=== PATIENT | female | born 1960 | race Caucasian/White ===

== ENCOUNTER → 2016-10-31 | Outpatient (CLI) | payer OTHER ==
--- NOTE | 2016-10-31 11:14 | REPMRS ---
Patient History The patient states she has not had a clinical breast exam in over a year. Patient is nulliparous. No known family history of cancer. Digital Mammo Screening Bilat: October 31, 2016 - Exam #: [id number] Bilateral CC and MLO view(s) were taken. Technologist: Emi Serna, Technologist Prior study comparison: October 07, 2015, bilateral digital mammo screening bilat performed at [facility]. September 14, 2014, bilateral digital mammo screening bilat performed at [facility]. FINDINGS: There are scattered fibroglandular densities. There has been no change in the appearance of the mammogram from the prior studies. There is a mild amount of residual fibroglandular tissue which is fairly symmetric. There is no interval development of dominant mass, architectural distortion, or clustered microcalcification suggestive of malignancy. ASSESSMENT: BI-RADS/ACR category 1 mammogram. Negative. Recommendation Routine screening mammogram in 1 year (for women over age 40). This mammogram was interpreted with the aid of an FDA-approved computer-aided dectection system. Electronically Signed By: Koby Ying MD 10/31/16 5831
== END ==
LOC: M RAD 08:44
PROVIDERS: ATTEND Family Medicine
DX: Z12.31 Encounter for screening mammogram for malignant neoplasm of breast (principal)

== ENCOUNTER → 2017-11-05 | Outpatient (CLI) | payer OTHER | LOC: M RAD 08:33 | DX: Z12.31 Encounter for screening mammogram for malignant neoplasm of breast (principal) | CPT/HCPCS: 77067 ==

== ENCOUNTER → 2018-08-12 | Outpatient (CLI) | payer OTHER ==
--- NOTE | 2018-08-12 12:10 | REP ---
COMPLETE SKULL: HISTORY: Soft tissue neoplasm. There is no acute fracture or bone lesion. The sinuses are clear. IMPRESSION: Normal study. Electronically Signed by Ryan Alvarado MD 08/12/2018 12:22 P
== END ==
LOC: M RAD 10:46
PROVIDERS: ATTEND Plastic Surgery Surgery of the Hand
DX: D49.2 Neoplasm of unspecified behavior of bone, soft tissue, and skin (principal)

== ENCOUNTER 2018-09-03 06:05 | Day surgery (SDC) | payer OTHER ==
[~2018-09-03] VITALS: Ht 152.4 cm; Wt 105.0 kg
[~2018-09-03 06:05] MED LIST: AVAP300T23 PO; CARV6.25 PO; FISH7.5C PO; GLIM4TAB PO; HYDR25TAB PO; JANU100T PO; KLOR1CAP PO; LOVA20TA2 PO; OMEP20CA3 PO; PRESCAP PO
[2018-09-03] MEDS ORDERED: LIDOCAINE 2% W/EPIN INJ 20ML **PRES FREE As Ordered ONE (07:11)
[2018-09-03] MEDS ORDERED: LIDOCAINE W/EPINEPHRINE 1% 20ML VIAL As Ordered ONE (07:11)
[2018-09-03] MEDS ORDERED: ceFAZolin 2 GM/D5W 50 ML IV BAG (J0690 PER 500MG) As Ordered ONE (07:17)
[2018-09-03] MEDS ORDERED: PROPOFOL 200 MG/20 ML VIAL As Ordered ONE ×2 (07:21→08:52)
[2018-09-03] MEDS ORDERED: LIDOCAINE 2% INJ 100 MG/5 ML SDV (FOR ANES.) As Ordered ONE (07:21)
[2018-09-03] MEDS ORDERED: MIDAZOLAM INJ 2 MG/2 ML VIAL (J2250) As Ordered ONE (07:22)
[2018-09-03] MEDS ORDERED: fentaNYL 100 MCG/2 ML INJECTION (J3010) As Ordered ONE (07:22)
[2018-09-03] MEDS ORDERED: LR 1,000 ML IV ONE (07:30)
[2018-09-03] MEDS ORDERED: ceFAZolin SOD 1 GM in D5W MINI-BAG PLUS 50 ML IV ONE (07:30)
[2018-09-03] MEDS ORDERED: ceFAZolin 1GM INJ (J0690 PER 500MG) As Ordered ONE (08:00)
[2018-09-03] MEDS ORDERED: ONDANSETRON 4MG/2ML VIAL (J2405) As Ordered ONE (08:06)
[2018-09-03] MEDS ORDERED: PHENYLephrine HCL 500 MCG/5 ML (100MCG/ML) SYRINGE (J2370) As Ordered ONE (08:06)
[2018-09-03] MEDS ORDERED: KETOROLAC 60 MG/2 ML VIAL (J1885) As Ordered ONE (08:06)
[2018-09-03] MEDS ORDERED: ePHEDrine SULFATE 25 MG/5 ML(5MG/ML) SYRINGE As Ordered ONE (08:19)
[2018-09-03] MEDS ORDERED: BACITRACIN OINT 30GM As Ordered ONE (08:59)
--- NOTE | 2018-09-03 09:06 | POST-OPPD ---
Postoperative Procedure Note Date Of Procedure: Sep 03, 2018 PREOPERATIVE DIAGNOSIS: Multiple masses scalp POSTOPERATIVE DIAGNOSIS: same FINDINGS: four masses anterior and posterior right scalp. Anterior mass has cluster cysts. PROCEDURE: Excision multiple masses anterior and right posterior scalp SURGEON: Dr Jones ANESTHESIA: Local with sedation SPECIMENS: #1 scalp masses anterior with excess skin, #2 mass, #3 mass, #4 mass and skin ESTIMATED BLOOD LOSS: 5 cc REPLACED: none DRAINS: none COMPLICATIONS: none POSTOPERATIVE CONDITION: stable LESLIE JONES DO Sep 03, 2018 09:06
[2018-09-03] MEDS ORDERED: OXYC1TAB23 PO (09:08)
[2018-09-03 10:10] VITALS: BP 154/75
--- NOTE | 2018-09-03 20:21 | RO ---
DATE OF PROCEDURE: 09/03/2018 PREPROCEDURE DIAGNOSIS: Multiple masses on the scalp. POSTPROCEDURE DIAGNOSIS: Multiple masses on the scalp. PROCEDURE: Excision multiple masses anterior and right posterior scalp. SURGEON: Soo Piper DO LEGAL RECRUITER: ANESTHESIA: Local with sedation. Specimens were sent. There were four specimens - #1, #2, #3, and #4 and they are all masses from different locations with excess skin. ESTIMATED BLOOD LOSS: About 5 mL. No replacement needed. No drains. No complications. DESCRIPTION OF PROCEDURE: This is a 58-year-old female who developed multiple cysts on her scalp, so we identified four of them. The anterior cyst is a complex cyst, they are joined ones together, so she is scheduled for full excision. All of the risks and benefits and alternatives discussed with the patient in the preoperative holding area. She is ready to proceed. She was brought into the operating room, placed in supine position. She positioned herself in the supine position, tilted to the left exposing the right scalp and the superior scalp. Preoperative antibiotics were given, 2 grams of Ancef and sequential stockings placed on the lower calf. Light sedation was given to the patient, and then 2% lidocaine with epinephrine was infiltrated through all the areas of work. After the effect of lidocaine was ensured, the longitudinal incision was carried out through our first anterior mass, which, like I said, was a complex cyst. I made a longitudinal incision and blunt dissection was done until the fully encapsulated two cysts were identified and carefully removed. No bleeding was at the bed. The wound was irrigated with bacitracin irrigation. The edges of the skin were reapproximated, excess of the skin was excised and the skin was closed in layers with subcu #3-0 Monocryl sutures and a #4-0 Monocryl vertical mattress suture. Then, we turned our attention to lesion #2. The first one was 4 cm in length, the second one was smaller; it was about 1 cm. Incision was carried out as well and the cyst was easily shelled out using blunt dissection with a Joker elevator. The wound was irrigated with bacitracin irrigation and then closed in layers with #3-0 Monocryl sutures. Total incision on this is 1-1/2 cm. The #3 lesion is in the same position of the upper right side of the scalp, and, again, incision is carried out, the blunt dissection is done and the cyst was removed without any difficulties. The wound is irrigated and closed with interrupted #3-0 Monocryl sutures and then vertical mattress #4-0 Monocryl suture as well. The length of that incision is 1.5 cm. Then, we turned our attention to the last mass, which is on the right posterior portion of the scalp, oriented behind the right ear, and it is a longer, bigger mass. A longitudinal incision was carried out through the most prominent part of it. The cyst was identified and blunt dissection was done with Joker elevator to remove the cyst from its subcuticular place of origin and removed. The wound was irrigated with bacitracin irrigation. Excess skin was trimmed and also sent to pathology, and then the wound was closed in layers with interrupted #3-0 Monocryl sutures and a #4-0 mattress suture for the dermis. Total length of this incision is 4 cm. Then, bacitracin ointment and a bulky dressing was placed, and the patient was transferred to the recovery room completely awake.
== END 2018-09-03 10:11 | disposition home or self-care (01) ==
LOC: M SDC 06:05 → MERGE 07:30 → M SDC 10:11
PROVIDERS: ATTEND Plastic Surgery Surgery of the Hand
DX: L72.11 Pilar cyst (principal); L72.12 Trichodermal cyst; E11.9 Type 2 diabetes mellitus without complications; K21.9 Gastro-esophageal reflux disease without esophagitis; I10 Essential (primary) hypertension; E78.5 Hyperlipidemia, unspecified; Z79.84 Long term (current) use of oral hypoglycemic drugs; Z79.899 Other long term (current) drug therapy
CPT/HCPCS: 11422; 11424; 88304; J0690; J1885; J2250; J2370; J2405; J3010

== ENCOUNTER → 2018-11-13 | Outpatient (CLI) | payer OTHER ==
[~2018-11-13] MED LIST changes: +OXYC1TAB23 PO
--- NOTE | 2018-11-13 08:48 | REPMRS ---
Patient History The patient states she has not had a clinical breast exam in over a year. No known family history of cancer. Digital Mammo Screening Bilat: November 13, 2018 - Exam #: [id number] Bilateral CC and MLO view(s) were taken. Technologist: Belkis Guerrero, Technologist Prior study comparison: November 05, 2017, bilateral digital mammo screening bilat performed at [facility]. October 31, 2016, bilateral digital mammo screening bilat performed at [facility]. October 07, 2015, bilateral digital mammo screening bilat performed at [facility]. FINDINGS: There are scattered fibroglandular densities. There has been no change in the appearance of the mammogram from the prior studies. There is a mild amount of scattered fibroglandular density which is fairly symmetric. There is no interval development of dominant mass, architectural distortion, or clustered microcalcification suggestive of malignancy. 3-D tomosynthesis shows no additional findings. Assessment: BI-RADS/ACR category 1 mammogram. Negative Mammogram. Recommendation Routine screening mammogram of both breasts in 1 year (for women over age 40). This patient's Lifetime Breast Cancer RIsk is estimated at 10.1 %. This mammogram was interpreted with the aid of an FDA-approved computer-aided dectection system. Electronically Signed By: Israel Beard MD 11/13/18 0885
== END ==
LOC: M RAD 07:48
PROVIDERS: ATTEND Family Medicine
DX: Z12.31 Encounter for screening mammogram for malignant neoplasm of breast (principal)

== ENCOUNTER → 2019-12-30 | Outpatient (CLI) | payer OTHER ==
[~2019-12-30] MED LIST changes: -GLIM4TAB PO; +GLIM4TAB5 PO; +OMEP1CAP73 PO; -OMEP20CA3 PO
--- NOTE | 2020-01-15 14:56 | REPMRS ---
Patient History The patient states she has not had a clinical breast exam in over a year. Patient is postmenopausal and is nulliparous. No known family history of cancer. No Hormone Replacement Therapy Digital Woman Screen Mammo: December 30, 2019 - Exam #: [id number] Bilateral CC and MLO view(s) were taken. Technologist: Emeli Rangel, Technologist Prior study comparison: November 13, 2018, bilateral digital mammo screening bilat, performed at [facility]. November 05, 2017, bilateral digital mammo screening bilat, performed at [facility]. October 31, 2016, bilateral digital mammo screening bilat, performed at [facility]. FINDINGS: The breast tissue is almost entirely fat. The Volpara volumetric breast density category is: A. There has been no change in the appearance of the mammogram from the prior studies. There is no interval development of dominant mass, architectural distortion, or grouped microcalcification typical of malignancy. 3-D tomosynthesis shows no additional findings. Assessment: BI-RADS/ACR category 1 mammogram. Negative Mammogram. Recommendation Routine screening mammogram of both breasts in 1 year (for women over age 40). This patient's Lifetime Breast Cancer RIsk is estimated at 11.7 %. This mammogram was interpreted with the aid of an FDA-approved computer-aided dectection system. Electronically Signed By: Israel Beard MD 01/15/20 0420
== END ==
LOC: M WHC 06:25
PROVIDERS: ATTEND Family Medicine
DX: Z12.31 Encounter for screening mammogram for malignant neoplasm of breast (principal)

== ENCOUNTER → 2021-01-25 | Outpatient (CLI) | payer OTHER ==
[~2021-01-25] MED LIST changes: +HYDR-3490 PO; -HYDR25TAB PO
--- NOTE | 2021-01-25 09:30 | REPMRS ---
Patient History The patient states she has not had a clinical breast exam in over a year. No known family history of cancer. No Hormone Replacement Therapy Patient states no breast complaints today. Patient has signed MRS History Sheet. Digital Woman Screen Mammo: January 25, 2021 - Exam #: [id number] Bilateral CC and MLO view(s) were taken. Technologist: Loida Barrera [employer] Prior study comparison: December 30, 2019, bilateral digital woman screen mammo performed at [facility]. November 13, 2018, bilateral digital mammo screening bilat, performed at [facility]. FINDINGS: There are scattered fibroglandular densities. Screening. Digital screening (2D) mammography was performed bilaterally in the CC and MLO projections. Additionally, breast tomosynthesis (3D mammography) was performed bilaterally in the CC and MLO projections. Todays exam was compared to the prior exam/exams. By history, the patient has no complaints of a palpable breast abnormality or other significant breast complaints. The breasts are unchanged in size and shape. There are no josiane-soft tissue densities or spiculated masses. There is no internal architectural distortion. Once again, stable benign appearing calcifications are seen.There are no suspicious josiane-calcific clusters. Skin thickening or nipple retraction is not present. IMPRESSION: BI-RADS Category 2- Benign Findings. There is no evidence of malignant alteration of the breasts. Followup examination recommended in one year. The Volpara volumetric breast density category is B, there are scattered areas of fibroglandular densities. This mammogram was read with the assistance [facility],an FDA approved computer aided detection system for mammography. The lifetime Tyrer-Cuzick score is 11.3 % Negative x-ray reports should not delay surgical consultation if a dominant or clinically suspicious mass is present. Not all breast cancers can be identified by mammography. Therefore, we recommend that you continue to perform regular breast self-examination and physical examination and then promptly contact your physician of any concerns or changes. Adenosis and dense breasts may obscure an underlying neoplasm. Assessment: BI-RADS/ACR category 2 mammogram. Benign Findings. Recommendation Routine screening mammogram of both breasts in 1 year. Electronically Signed By: Bao Altamirano DO 01/25/21 3901
== END ==
LOC: M WHC 08:24
PROVIDERS: ATTEND Family Medicine
DX: Z12.31 Encounter for screening mammogram for malignant neoplasm of breast (principal)

== ENCOUNTER → 2021-08-15 | Outpatient (CLI) | payer OTHER ==
[~2021-08-15] MED LIST changes: +MELO15TA28 PO; +POTA1TAB21 PO; +ROSU10TA6 PO; +TRUL10IN SC
== END ==
LOC: M LABSMTC 09:15
PROVIDERS: ATTEND Anesthesiology
DX: Z11.52 Encounter for screening for COVID-19 (principal); Z20.822 Contact with and (suspected) exposure to COVID-19

== ENCOUNTER 2021-08-19 09:22 | Day surgery (SDC) | payer OTHER ==
[~2021-08-19] VITALS: Ht 152.4 cm; Wt 102.5 kg
[~2021-08-19 09:22] MED LIST changes: +LIDOCAINE 2% 100MG/5ML SDV (FOR ANES.) As Ordered ONE; +NS 1,000 ML IV ONE; +propofoL 200 MG/20 ML VIAL As Ordered ONE
[2021-08-19 11:45] VITALS: BP 133/74
== END 2021-08-19 12:00 | disposition home or self-care (01) ==
LOC: M OPP 09:22
PROVIDERS: ATTEND Internal Medicine Gastroenterology
DX: Z12.11 Encounter for screening for malignant neoplasm of colon (principal); Z86.010 Personal history of colon polyps; K57.30 Diverticulosis of large intestine without perforation or abscess without bleeding; K64.0 First degree hemorrhoids; K44.9 Diaphragmatic hernia without obstruction or gangrene; K31.7 Polyp of stomach and duodenum; K22.89 Other specified disease of esophagus; K31.89 Other diseases of stomach and duodenum; R12 Heartburn; Z79.899 Other long term (current) drug therapy; Z88.8 Allergy status to other drugs, medicaments and biological substances

== ENCOUNTER → 2022-02-17 | Outpatient (CLI) | payer OTHER ==
[~2022-02-17] MED LIST changes: +FISH10005 PO; -FISH7.5C PO; -LIDOCAINE 2% 100MG/5ML SDV (FOR ANES.) As Ordered ONE; -NS 1,000 ML IV ONE; -propofoL 200 MG/20 ML VIAL As Ordered ONE
== END ==
LOC: M WUC 14:48
PROVIDERS: ATTEND Family Medicine
DX: M25.552 Pain in left hip (principal)

== ENCOUNTER → 2022-04-17 | Outpatient (CLI) | payer OTHER | LOC: M WHC 08:40 | PROVIDERS: ATTEND Family Medicine | DX: Z12.31 Encounter for screening mammogram for malignant neoplasm of breast (principal) ==

== ENCOUNTER 2022-06-14 11:47 | Inpatient (IN) | payer OTHER ==
[~2022-06-14] VITALS: Ht 152.4 cm; Wt 101.4 kg
[2022-06-14] MEDS ORDERED: CEPH500C PO (12:04)
[2022-06-14] MEDS ORDERED: TRAM50TA2 PO (12:04)
[2022-06-14] MEDS ORDERED: BACTDSTA PO (12:04)
[2022-06-14 12:51] LABS: BASO # 0.1 10^3/uL (0.0-0.2); BASO % 0.4 % (0.0-1.0); EOS # 0.1 10^3/uL (0.0-0.5); EOS % 0.9 % (0.0-3.0); HEMOGLOBIN 11.4 g/dl (12.0-15.5); LYMPH # 2.3 10^3/uL (1.5-5.0); LYMPH % 19.6 % (24.0-44.0); MEAN CORPUSCULAR HEMOGLOBIN 28.9 pg (27.0-33.0); MEAN CORPUSCULAR HGB CONC 32.6 g/dl (32.0-36.5); MEAN CORPUSCULAR VOLUME 88.8 fl (80.0-96.0); MONO # 1.3 10^3/uL (0.0-0.8); MONO % 10.7 % (2.0-8.0); NEUTROPHILS % 68.1 % (36.0-66.0); PLATELET COUNT, AUTOMATED 223 10^3/uL (150-450); RED BLOOD COUNT 3.94 10^6/uL (4.00-5.40); WHITE BLOOD COUNT 11.7 10^3/uL (4.0-10.0)
[2022-06-14 13:15] LABS: CALCIUM LEVEL 8.7 MG/DL (8.3-10.6); CREATININE FOR GFR 1.61 MG/DL (0.55-1.30); GLOMERULAR FILTRATION RATE 34.4 (>45); POTASSIUM SERUM 4.5 MMOL/L (3.5-5.1)
[2022-06-14] MEDS ORDERED: NS 1,000 ML IV ONE (16:40)
[2022-06-14 17:42] LABS: C REACTIVE PROTEIN QUANTITATIV 13.3 MG/DL (<1.0)
[2022-06-14 18:19] LABS: ERYTHROCYTE SEDIMENTATION RATE 99 mm/hr (0-30)
[2022-06-14 18:23] LABS: RSV AMPLIFICATION NEGATIVE (NEGATIVE)
[2022-06-14] MEDS ORDERED: PIPERACILLIN/TAZOBACTAM SOD 3.375 GM in D5W MINI-BAG PLUS 50 ML IV ONE (18:25)
[2022-06-14] MEDS ORDERED: VANCOMYCIN HCL 2,000 MG in D5W 500 ML IV ONE (18:25)
[2022-06-14] MEDS ORDERED: ACETAMINOPHEN TAB 650MG DOSE (2X325MG) PO PRN (18:45)
[2022-06-14] MEDS ORDERED: DEXTROSE 50% 50ML SYRINGE IV PRN (18:45)
[2022-06-14] MEDS ORDERED: ONDANSETRON 4MG 2ML VIAL IV PRN (18:45)
[2022-06-14] MEDS ORDERED: GLUCAGON INJ 1MG VIAL SC PRN (18:45)
[2022-06-14] MEDS ORDERED: GLUCOSE 4GM CHEW TABLET PO PRN (18:45)
[2022-06-14] MEDS ORDERED: NS 1,000 ML IV SCH (18:55)
[2022-06-14] MEDS ORDERED: VANCOMYCIN HCL 1,000 MG, VIAL MATE ADAPTER 1 EACH in NS 250 ML IV ONE ×2 (19:00→20:00)
[2022-06-14] MEDS ORDERED: HOME MED LIST COMPLETE! XX SCH (19:40)
[2022-06-14] MEDS: INSULIN LISPRO (NovoLOG) PER UNIT SC SCH ×2 (20:26→23:23)
[2022-06-14] MEDS ORDERED: **hydrALAZINE** 10 MG TAB PO PRN (21:05)
[2022-06-14 21:36] VITALS: BP 165/81
[2022-06-14] MEDS: CARVedilol 6.25 MG TAB PO SCH (21:50)
[2022-06-14] MEDS: OMEPRAZOLE 20MG CAP PO SCH (21:50)
[2022-06-14] MEDS: D5W/0.9% SODIUM CHLORIDE 1,000 ML IV SCH (23:40)
[2022-06-15] MEDS: PIPERACILLIN/TAZOBACTAM SOD 3.375 GM in D5W MINI-BAG PLUS 50 ML IV SCH ×4 (01:05→18:46)
[2022-06-15 06:06] VITALS: BP 123/68
[2022-06-15 06:11] LABS: HEMATOCRIT 30.5 % (36.0-47.0); HEMOGLOBIN 10.1 g/dl (12.0-15.5); MEAN CORPUSCULAR HEMOGLOBIN 29.4 pg (27.0-33.0); MEAN CORPUSCULAR HGB CONC 33.1 g/dl (32.0-36.5); MEAN CORPUSCULAR VOLUME 88.7 fl (80.0-96.0); PLATELET COUNT, AUTOMATED 210 10^3/uL (150-450); RED BLOOD COUNT 3.44 10^6/uL (4.00-5.40); WHITE BLOOD COUNT 9.1 10^3/uL (4.0-10.0)
[2022-06-15 06:24] LABS: INR 1.11; PROTHROMBIN TIME 14.6 SECONDS (12.5-14.5)
[2022-06-15 06:25] LABS: PARTIAL THROMBOPLASTIN TIME 35.5 SECONDS (24.8-34.2)
[2022-06-15] MEDS: INSULIN LISPRO (NovoLOG) PER UNIT SC SCH ×4 (06:27→20:35)
[2022-06-15 06:34] LABS: URIC ACID 5.4 MG/DL (3.1-7.8)
[2022-06-15 06:35] LABS: MAGNESIUM LEVEL 1.7 MG/DL (1.8-2.4)
[2022-06-15 06:37] LABS: ALBUMIN 2.9 G/DL (3.2-5.2); BILIRUBIN,TOTAL 0.4 MG/DL (0.3-1.2); CALCIUM LEVEL 8.2 MG/DL (8.3-10.6); CREATININE FOR GFR 1.49 MG/DL (0.55-1.30); GLOMERULAR FILTRATION RATE 37.6 (>45); POTASSIUM SERUM 3.9 MMOL/L (3.5-5.1); TOTAL PROTEIN 5.9 G/DL (5.7-8.2)
[2022-06-15 06:38] LABS: PERCENT SATURATION 7.5 % (13.2-45.0)
[2022-06-15 06:41] LABS: FERRITIN 124.5 NG/ML (7.3-270.7); FOLATE 15.41 NG/ML (>5.4)
[2022-06-15 07:03] LABS: HEMOGLOBIN A1c 6.3 % (4.0-6.0)
[2022-06-15] MEDS: OCUVITE 1 TAB PO SCH (08:41)
[2022-06-15] MEDS: OMEGA-3 1000MG CAPSULE PO SCH (08:41)
[2022-06-15] MEDS: OMEPRAZOLE 20MG CAP PO SCH ×2 (08:41→20:48)
[2022-06-15] MEDS: CARVedilol 6.25 MG TAB PO SCH ×2 (08:42→20:48)
[2022-06-15] MEDS: D5W/0.9% SODIUM CHLORIDE 1,000 ML IV SCH ×2 (08:43→12:53)
[2022-06-15] MEDS ORDERED: VANCOMYCIN HCL 1,000 MG, VIAL MATE ADAPTER 1 EACH in D5W 250 ML IV SCH (09:00)
[2022-06-15 14:00] VITALS: BP 134/68
[2022-06-15] MEDS ORDERED: propofoL 200 MG/20 ML VIAL As Ordered ONE (16:14)
[2022-06-15] MEDS ORDERED: LIDOCAINE 2% 100MG/5ML SDV (FOR ANES.) As Ordered ONE (16:14)
[2022-06-15] MEDS ORDERED: fentaNYL 100 MCG/2 ML INJECTION As Ordered ONE (16:14)
[2022-06-15] MEDS ORDERED: MIDAZOLAM INJ 2MG/2ML VIAL As Ordered ONE (16:14)
[2022-06-15] MEDS ORDERED: BUPIVACAINE HCL 0.25% 30ML VIAL As Ordered ONE (16:18)
[2022-06-15] MEDS ORDERED: LIDOCAINE 1% SDV 30ML VIAL As Ordered ONE (16:18)
[2022-06-15] MEDS ORDERED: ceFAZolin 1GM VIAL As Ordered ONE (16:55)
[2022-06-15] MEDS ORDERED: ceFAZolin 2 GM/D5W 50 ML IV BAG As Ordered ONE (17:09)
[2022-06-15] MEDS ORDERED: ACETAMINOPHEN 1000MG 100ML IV BAG As Ordered ONE (17:21)
[2022-06-15] MEDS ORDERED: ONDANSETRON 4MG 2ML VIAL As Ordered ONE (17:21)
[2022-06-15] MEDS ORDERED: METOCLOPRAMIDE INJ 10MG/2ML VIAL As Ordered ONE (17:21)
[2022-06-15] MEDS ORDERED: PHENYLephrine 500MCG 5ML (100MCG/ML) SYRINGE As Ordered ONE (17:25)
[2022-06-15] MEDS ORDERED: BACITRACIN OINTMENT 30GM TUBE As Ordered ONE (17:28)
[2022-06-15] MEDS ORDERED: LR 1,000 ML IV SCH (17:45)
[2022-06-15] MEDS ORDERED: oxyCODONE 5MG TAB PO PRN (17:45)
[2022-06-15] MEDS ORDERED: METOCLOPRAMIDE INJ 10MG/2ML VIAL IV PRN (17:45)
[2022-06-15] MEDS ORDERED: ONDANSETRON 4MG 2ML VIAL IV PRN (17:45)
[2022-06-15] MEDS ORDERED: fentaNYL 100 MCG/2 ML INJECTION IV PRN (17:45)
[2022-06-15 18:45] VITALS: BP 132/70
[2022-06-15 20:17] VITALS: BP 119/66
[2022-06-15] MEDS: HEPARIN SOD (PORCINE) 5000UNITS/ML 1ML VIAL/SYRINGE SQ SCH (20:48)
[2022-06-15] MEDS: ROSUVASTATIN 10 MG TAB (CRESTOR) PO SCH (20:48)
[2022-06-15] MEDS: traMADol 50 MG TAB PO PRN (20:50)
[2022-06-15 21:08] VITALS: BP 116/64
[2022-06-15 22:11] VITALS: BP 111/60
[2022-06-16] MEDS: PIPERACILLIN/TAZOBACTAM SOD 3.375 GM in D5W MINI-BAG PLUS 50 ML IV SCH ×6 (01:04→18:21)
[2022-06-16 02:00] VITALS: BP 110/62
[2022-06-16 06:05] VITALS: BP 125/74
[2022-06-16 06:21] LABS: HEMATOCRIT 30.6 % (36.0-47.0); HEMOGLOBIN 9.8 g/dl (12.0-15.5); MEAN CORPUSCULAR VOLUME 90.5 fl (80.0-96.0); PLATELET COUNT, AUTOMATED 231 10^3/uL (150-450); RED BLOOD COUNT 3.38 10^6/uL (4.00-5.40); WHITE BLOOD COUNT 8.9 10^3/uL (4.0-10.0)
[2022-06-16] MEDS: HEPARIN SOD (PORCINE) 5000UNITS/ML 1ML VIAL/SYRINGE SQ SCH ×3 (06:25→20:32)
[2022-06-16] MEDS: INSULIN LISPRO (NovoLOG) PER UNIT SC SCH ×4 (07:30→20:33)
[2022-06-16] MEDS: VANCOMYCIN HCL 1,000 MG, VIAL MATE ADAPTER 1 EACH in D5W 250 ML IV SCH (08:05)
[2022-06-16] MEDS: OCUVITE 1 TAB PO SCH (08:05)
[2022-06-16] MEDS: OMEGA-3 1000MG CAPSULE PO SCH (08:05)
[2022-06-16] MEDS: CARVedilol 6.25 MG TAB PO SCH ×2 (08:06→20:37)
[2022-06-16] MEDS: OMEPRAZOLE 20MG CAP PO SCH ×2 (08:06→20:31)
[2022-06-16] MEDS ORDERED: ENOXAPARIN 40MG/0.4ML SYRINGE (J1650 PER 10MG) SC SCH (09:00)
[2022-06-16 10:25] VITALS: BP 126/75
[2022-06-16 15:12] VITALS: BP 136/67
[2022-06-16 20:29] VITALS: BP 180/91
[2022-06-16] MEDS: ROSUVASTATIN 10 MG TAB (CRESTOR) PO SCH (20:31)
[2022-06-16] MEDS: traMADol 50 MG TAB PO PRN (20:32)
[2022-06-17] MEDS: PIPERACILLIN/TAZOBACTAM SOD 3.375 GM in D5W MINI-BAG PLUS 50 ML IV SCH ×2 (00:15→06:01)
[2022-06-17 05:35] VITALS: BP 170/92
[2022-06-17] MEDS: HEPARIN SOD (PORCINE) 5000UNITS/ML 1ML VIAL/SYRINGE SQ SCH (06:01)
[2022-06-17 07:00] LABS: HEMATOCRIT 30.2 % (36.0-47.0); HEMOGLOBIN 9.7 g/dl (12.0-15.5); MEAN CORPUSCULAR HEMOGLOBIN 29.1 pg (27.0-33.0); MEAN CORPUSCULAR HGB CONC 32.1 g/dl (32.0-36.5); MEAN CORPUSCULAR VOLUME 90.7 fl (80.0-96.0); PLATELET COUNT, AUTOMATED 229 10^3/uL (150-450); RED BLOOD COUNT 3.33 10^6/uL (4.00-5.40); WHITE BLOOD COUNT 7.2 10^3/uL (4.0-10.0)
[2022-06-17 07:41] LABS: C REACTIVE PROTEIN QUANTITATIV 3.9 MG/DL (<1.0)
[2022-06-17 07:43] LABS: CALCIUM LEVEL 8.2 MG/DL (8.3-10.6); CREATININE FOR GFR 1.08 MG/DL (0.55-1.30); GLOMERULAR FILTRATION RATE 54.5 (>45); POTASSIUM SERUM 4.2 MMOL/L (3.5-5.1)
[2022-06-17] MEDS ORDERED: CEPH500C PO (08:43)
[2022-06-17] MEDS ORDERED: VANCOMYCIN HCL 500 MG in D5W MINI-BAG PLUS 100 ML IV SCH (09:00)
[2022-06-17 09:17] VITALS: BP 164/95
[2022-06-17] MEDS: CARVedilol 6.25 MG TAB PO SCH (09:17)
[2022-06-17] MEDS: INSULIN LISPRO (NovoLOG) PER UNIT SC SCH (09:17)
[2022-06-17] MEDS: OMEGA-3 1000MG CAPSULE PO SCH (09:17)
[2022-06-17] MEDS: OMEPRAZOLE 20MG CAP PO SCH (09:17)
[2022-06-17] MEDS: OCUVITE 1 TAB PO SCH (09:17)
[2022-06-17] MEDS: VANCOMYCIN HCL 1,000 MG, VIAL MATE ADAPTER 1 EACH in D5W 250 ML IV SCH (09:54)
[2022-06-19] MEDS ORDERED: CYANOCOBALAMIN 1,000MCG/ML 1ML VIAL IM SCH (09:00)
== END 2022-06-17 12:00 | disposition home or self-care (01) | DRG 364 ==
LOC: M ED 11:47 → M ED INP 18:43 → ENRESERV 19:47 → M MS5PR 21:35
PROVIDERS: ADMIT Family Medicine; ATTEND Family Medicine
PROC: 0PBV0ZZ Excision of Left Finger Phalanx, Open Approach (ICD-10-PCS; 2022-06-15)
PROC: 0JBK0ZZ Excision of Left Hand Subcutaneous Tissue and Fascia, Open Approach (ICD-10-PCS; principal; 2022-06-15 12:00)
DX: L03.012 Cellulitis of left finger (principal); N17.9 Acute kidney failure, unspecified; E11.22 Type 2 diabetes mellitus with diabetic chronic kidney disease; Z68.41 Body mass index [BMI] 40.0-44.9, adult; M25.842 Other specified joint disorders, left hand; N18.9 Chronic kidney disease, unspecified; D51.0 Vitamin B12 deficiency anemia due to intrinsic factor deficiency; I12.9 Hypertensive chronic kidney disease with stage 1 through stage 4 chronic kidney disease, or unspecified chronic kidney disease; B95.61 Methicillin susceptible Staphylococcus aureus infection as the cause of diseases classified elsewhere; E66.9 Obesity, unspecified; E78.5 Hyperlipidemia, unspecified; K21.9 Gastro-esophageal reflux disease without esophagitis; Z79.1 Long term (current) use of non-steroidal anti-inflammatories (NSAID); Z79.84 Long term (current) use of oral hypoglycemic drugs; Z79.899 Other long term (current) drug therapy; Z88.8 Allergy status to other drugs, medicaments and biological substances

== ENCOUNTER → 2023-04-26 | Outpatient (CLI) | payer OTHER ==
[~2023-04-26] MED LIST changes: +BACTDSTA PO; +CEPH500C PO; +TRAM50TA2 PO
== END ==
LOC: M WHC 08:53
PROVIDERS: ATTEND Family Medicine
DX: Z12.31 Encounter for screening mammogram for malignant neoplasm of breast (principal)

== ENCOUNTER → 2024-02-22 | Outpatient (CLI) | payer MEDICARE ==
[~2024-02-22] MED LIST changes: -ROSU10TA6 PO; +ROSU10TA61 PO
== END ==
LOC: M RAD 11:26
PROVIDERS: ATTEND Family Medicine
DX: M79.652 Pain in left thigh (principal); R09.89 Other specified symptoms and signs involving the circulatory and respiratory systems

== ENCOUNTER → 2024-04-08 | Outpatient (CLI) | payer MEDICARE | LOC: M SOG 07:53 | PROVIDERS: ATTEND Physician Assistant | DX: M25.561 Pain in right knee (principal); M17.11 Unilateral primary osteoarthritis, right knee ==

== ENCOUNTER 2024-04-10 08:41 | Outpatient (RCR) | payer MEDICARE | END 2024-04-19 | LOC: M PT 08:41 | PROVIDERS: ATTEND Psychiatry & Neurology Neurology | DX: R53.1 Weakness (principal) ==

== ENCOUNTER 2024-04-25 09:02 | Outpatient (RCR) | payer MEDICARE | END 2024-05-20 | LOC: M PT 09:02 | PROVIDERS: ATTEND Psychiatry & Neurology Neurology | DX: R26.89 Other abnormalities of gait and mobility (principal); R53.83 Other fatigue ==

== ENCOUNTER → 2024-05-09 | Outpatient (CLI) | payer MEDICARE | LOC: M WHC 10:30 | PROVIDERS: ATTEND Family Medicine | DX: Z12.31 Encounter for screening mammogram for malignant neoplasm of breast (principal) ==

== ENCOUNTER → 2024-07-24 | Outpatient (CLI) | payer MEDICARE | LOC: M PLAIMG 10:34 | PROVIDERS: ATTEND Physician Assistant | DX: M23.221 Derangement of posterior horn of medial meniscus due to old tear or injury, right knee (principal); M25.461 Effusion, right knee ==

== ENCOUNTER 2025-03-23 10:20 | Day surgery (SDC) | payer MEDICARE ==
[~2025-03-23] VITALS: Ht 152.4 cm; Wt 98.9 kg
[~2025-03-23 10:20] MED LIST changes: +EZET10TA57 PO; +LIDOCAINE 2% 100 MG/5 ML SDV (FOR ANES.) As Ordered ONE; +PRES10CA2 PO; +RA M500C PO; -ROSU10TA61 PO; +ROSU10TA90 PO
[2025-03-23 11:54] VITALS: TEMP 97.7
[2025-03-23 12:15] VITALS: BP 184/96; O2SAT 100
== END 2025-03-23 12:51 | disposition home or self-care (01) ==
LOC: M OPP 10:20
PROVIDERS: ATTEND Internal Medicine Gastroenterology
DX: K64.0 First degree hemorrhoids (principal); K57.30 Diverticulosis of large intestine without perforation or abscess without bleeding; Z86.0100 Personal history of colon polyps, unspecified; K44.9 Diaphragmatic hernia without obstruction or gangrene; K22.89 Other specified disease of esophagus; K31.89 Other diseases of stomach and duodenum; K31.7 Polyp of stomach and duodenum; R12 Heartburn; Z88.8 Allergy status to other drugs, medicaments and biological substances; Z79.85 Long-term (current) use of injectable non-insulin antidiabetic drugs; Z79.899 Other long term (current) drug therapy